=== PATIENT | female | born 1990 | race Caucasian/White ===

== ENCOUNTER 2022-06-30 06:38 | Inpatient (IN) | payer BC ==
[~2022-06-30] VITALS: Ht 157.5 cm; Wt 89.4 kg
[2022-06-30] MEDS ORDERED: MISOPROSTOL 100MCG TABLET VG PRN (07:30)
[2022-06-30] MEDS ORDERED: NALOXONE HCL 0.4 MG/ML 1ML VIAL IM PRN (07:30)
[2022-06-30] MEDS ORDERED: CARBOPROST TROMETHAMINE 250 MCG/ML AMPUL IM PRN (07:30)
[2022-06-30] MEDS ORDERED: METHYLERGONOVINE MALEATE 0.2 MG/ML IM PRN ×2 (07:30→22:30)
[2022-06-30] MEDS ORDERED: LIDOCAINE HCL 1% 20ML VIAL (Pyxis) INJ INFIL PRN (07:30)
[2022-06-30] MEDS ORDERED: BUTORPHANOL TARTRATE 2 MG/ML VIAL IV PRN (07:30)
[2022-06-30] MEDS ORDERED: PENICILLIN G POTASSIUM 5 MMU in DEXT 5% WATER 100 ML IV SCH (08:00)
[2022-06-30 09:36] LABS: BASOPHILS % 0.6 % (0.0-2.0); EOSINOPHILS % 2.6 % (0.0-5.0); LYMPHOCYTES % 19.9 % (20.0-50.0); MEAN CORPUSCULAR HEMOGLOBIN 26.7 pg (28.0-32.0); MEAN CORPUSCULAR VOLUME 82.4 fL (81.0-99.0); MEAN PLATELET VOLUME 9.8 fl (7.4-10.4); MONOCYTES % 4.8 % (2.0-8.0); NEUTROPHILS % 72.1 % (40.0-76.0); PLATELET 223 x1000/uL (130-400); RED BLOOD CELL COUNT 4.12 mill/uL (4.2-5.4); RED CELL DISTRIBUTION WIDTH 14.2 % (11.6-14.6)
[2022-06-30 09:48] LABS: INR 0.9; PARTIAL THROMBOPLASTIN TIME 25.7 sec (23.4-31.0); PROTHROMBIN TIME 9.6 sec (9.6-11.0)
[2022-06-30] MEDS: LACTATED RINGERS 1,000 ML IV SCH ×4 (09:50→20:13)
[2022-06-30] MEDS ORDERED: SODIUM CHLORIDE 0.9% 10ML VIAL ONE (09:58)
[2022-06-30] MEDS ORDERED: EPHEDRINE SULFATE 50MG/ML VIAL ONE (09:58)
[2022-06-30] MEDS ORDERED: PHENYLEPHRINE HCL 10 MG/ML 1ML (IV VIAL) IV ONE (09:58)
[2022-06-30] MEDS ORDERED: LIDOCAINE HCL 2%/EPINEPHRINE 1:100,000 20 ML VIAL INFIL ONE (09:58)
[2022-06-30 11:08] LABS: CLARITY URINE CLEAR (CLEAR); COLOR URINE YELLOW (YELLOW); KETONES URINE NEGATIVE (NEGATIVE); LEUKOCYTE ESTERASE URINE TRACE (NEGATIVE); NITRITE URINE NEGATIVE (NEGATIVE); OCCULT BLOOD URINE NEGATIVE (NEGATIVE); PH URINE 6.5 (4.5-8.0); PROTEIN URINE NEGATIVE (NEGATIVE); SPECIFIC GRAVITY URINE 1.017 (1.005-1.030); UROBILINOGEN URINE 0.2 E.U./dL (0.2-1.0)
[2022-06-30 11:55] LABS: *AMPHETAMINES SCREEN URINE NEGATIVE (NEGATIVE); *BARBITURATES SCREEN URINE NEGATIVE (NEGATIVE); *BENZODIAZEPINES SCREEN URINE NEGATIVE (NEGATIVE); *COCAINE SCREEN URINE NEGATIVE (NEGATIVE); CANNABINOID URINE SCREEN NEGATIVE (NEGATIVE); METHADONE URINE SCREEN NEGATIVE (NEGATIVE); OPIATES URINE SCREEN NEGATIVE (NEGATIVE); PHENCYCLIDINE URINE SCREEN NEGATIVE (NEGATIVE)
[2022-06-30 13:35] LABS: HEPATITIS B SURFACE ANTIGEN NEGATIVE
[2022-06-30] MEDS: PENICILLIN G POTASSIUM 2.5 MMU in DEXTROSE 5% WATER 50 ML IV SCH ×2 (14:15→18:20)
[2022-06-30] MEDS: OXYTOCIN 30 UNITS/500ML NS PMX 500 ML IV SCH ×2 (18:28→22:44)
[2022-06-30] MEDS ORDERED: ROPIVACAINE HCL/PF EPIDURAL 200 ML EPI SCH (18:30)
[2022-06-30] MEDS ORDERED: ACETAMINOPHEN WITH CODEINE 300/30MG TABLET PO PRN (22:30)
[2022-06-30] MEDS ORDERED: BENZOCAINE/LANOLIN/ALOE VERA SPRAY TOP PRN (22:30)
[2022-06-30] MEDS ORDERED: LANOLIN OINT 7GM TUBE TOP PRN (22:30)
[2022-06-30] MEDS ORDERED: IBUPROFEN 400MG TABLET PO PRN (22:30)
[2022-06-30] MEDS ORDERED: DIPHENHYDRAMINE 25MG CAPSULE PO PRN (22:30)
[2022-06-30] MEDS ORDERED: BISACODYL 10MG SUPP PR PRN (22:30)
[2022-06-30] MEDS ORDERED: HEMORRHOIDAL SUPP PR PRN (22:30)
[2022-06-30] MEDS ORDERED: OXYTOCIN 30 UNITS/500ML NS PMX 500 ML IV SCH (22:30)
[2022-06-30] MEDS ORDERED: GLYCERIN/WITCH HAZEL LEAF MEDICATED PAD TOP PRN (22:30)
[2022-06-30 22:39] LABS: BG BASE EXCESS -1.3 mmol/L (-2.0-2.0); BG FRACTION INSPIRED OXYGEN 21; BG HCO3 ACT 24.8 mmol/L (22.0-26.0); BG PCO2 46.6 mmHg (35.0-45.0); BG PH 7.344 (7.350-7.450); BG SAMPLE SITE UAC; BG VENT MODE ROOM AIR
[2022-06-30 22:40] LABS: BG BASE EXCESS -3.2 mmol/L (-2.0-2.0); BG FRACTION INSPIRED OXYGEN 21; BG HCO3 ACT 21.9 mmol/L (22.0-26.0); BG PCO2 39.5 mmHg (35.0-45.0); BG PH 7.361 (7.350-7.450); BG PO2 < 30.3 mmHg (75.0-100.0); BG SAMPLE SITE UVC; BG VENT MODE ROOM AIR
[2022-07-01] MEDS: IBUPROFEN 800MG TABLET PO PRN ×3 (00:11→22:02)
[2022-07-01 01:00] VITALS: BP 105/52
[2022-07-01 02:00] VITALS: BP 103/58
[2022-07-01] MEDS: LACTATED RINGERS 1,000 ML IV SCH (02:32)
[2022-07-01 04:00] VITALS: BP 96/50
[2022-07-01 06:51] LABS: BASOPHILS % 0.2 % (0.0-2.0); EOSINOPHILS % 0.1 % (0.0-5.0); HEMATOCRIT. 27.6 % (36.0-48.0); HEMOGLOBIN. 9.2 g/dL (12.0-16.0); LYMPHOCYTES % 15.8 % (20.0-50.0); MEAN CORPUSCULAR HEMOGLOBIN 27.4 pg (28.0-32.0); MEAN CORPUSCULAR VOLUME 82.1 fL (81.0-99.0); MONOCYTES % 7.2 % (2.0-8.0); NEUTROPHILS % 76.7 % (40.0-76.0); PLATELET 155 x1000/uL (130-400); RED BLOOD CELL COUNT 3.35 mill/uL (4.2-5.4); RED CELL DISTRIBUTION WIDTH 14.6 % (11.6-14.6)
[2022-07-01 08:00] VITALS: BP 98/53
[2022-07-01] MEDS: PRENATAL VIT/FE FUMARATE/FA TABLET PO SCH (08:45)
[2022-07-01] MEDS: FERROUS SULFATE 325MG TABLET PO SCH ×2 (08:45→12:45)
[2022-07-01] MEDS: MAGNESIUM/ALUMINUM HYDROXIDE/SIMETHICONE 30ML UDC PO SCH ×2 (08:45→12:45)
[2022-07-01] MEDS: SIMETHICONE 80MG TABLET CHEW PO SCH ×2 (08:45→12:45)
[2022-07-01 16:00] VITALS: BP 111/53
[2022-07-01 20:00] VITALS: BP 119/79
[2022-07-01] MEDS ORDERED: DOCUSATE SODIUM 100MG CAPSULE PO SCH (21:00)
[2022-07-02 03:00] VITALS: BP 106/62
[2022-07-02] MEDS: IBUPROFEN 800MG TABLET PO PRN (03:46)
[2022-07-02 08:00] VITALS: BP 101/48
[2022-07-02] MEDS: FERROUS SULFATE 325MG TABLET PO SCH (08:28)
[2022-07-02] MEDS: MAGNESIUM/ALUMINUM HYDROXIDE/SIMETHICONE 30ML UDC PO SCH (08:28)
[2022-07-02] MEDS: SIMETHICONE 80MG TABLET CHEW PO SCH (08:28)
[2022-07-02] MEDS: PRENATAL VIT/FE FUMARATE/FA TABLET PO SCH (08:28)
== END 2022-07-02 12:15 | disposition home or self-care (01) | DRG 805 ==
LOC: 8 EST LDRP 06:38 → OBSVTOIN 06:38 → 8EST 07-01 01:01
PROVIDERS: ADMIT Specialist; ATTEND Specialist
PROC: 10D07Z6 Extraction of Products of Conception, Vacuum, Via Natural or Artificial Opening (ICD-10-PCS; principal; 2022-06-30)
PROC: 0HQ9XZZ Repair Perineum Skin, External Approach (ICD-10-PCS; 2022-06-30)
PROC: 3E0R3BZ Introduction of Anesthetic Agent into Spinal Canal, Percutaneous Approach (ICD-10-PCS; 2022-06-30)
PROC: 00HU33Z Insertion of Infusion Device into Spinal Canal, Percutaneous Approach (ICD-10-PCS; 2022-06-30)
DX: O69.81X0 Labor and delivery complicated by cord around neck, without compression, not applicable or unspecified (principal); O60.14X0 Preterm labor third trimester with preterm delivery third trimester, not applicable or unspecified; Z37.0 Single live birth; O98.32 Other infections with a predominantly sexual mode of transmission complicating childbirth; O42.913 Preterm premature rupture of membranes, unspecified as to length of time between rupture and onset of labor, third trimester; O99.214 Obesity complicating childbirth; Z3A.35 35 weeks gestation of pregnancy; O99.02 Anemia complicating childbirth; O70.0 First degree perineal laceration during delivery; A63.0 Anogenital (venereal) warts; Z20.822 Contact with and (suspected) exposure to COVID-19; O76 Abnormality in fetal heart rate and rhythm complicating labor and delivery
CPT/HCPCS: 36415; 36600; 76805; 76818; 80305; 81003; 82805; 85025; 86592; 86703; 86762; 86850; 86900; 87340; 87426; G0378; J0595; J2370; J2540; J3490; J7060; J7120; A4315; J2590

== ENCOUNTER 2023-12-03 08:36 | Emergency (ER) | payer BC ==
[~2023-12-03] VITALS: Ht 157.5 cm; Wt 77.0 kg
[2023-12-03 08:41] VITALS: O2SAT 99
[2023-12-03 09:00] LABS: BASOPHILS % 0.1 % (0.0-2.0); EOSINOPHILS % 2.7 % (0.0-5.0); HEMATOCRIT. 40.2 % (36.0-48.0); HEMOGLOBIN. 12.9 g/dL (12.0-16.0); LYMPHOCYTES % 8.6 % (20.0-50.0); MEAN CORPUSCULAR HEMOGLOBIN 26.5 pg (28.0-32.0); MEAN CORPUSCULAR HGB CONC 32.2 g/dL (31.0-37.0); MEAN CORPUSCULAR VOLUME 82.2 fL (81.0-99.0); MEAN PLATELET VOLUME 7.4 fl (7.4-10.4); MONOCYTES % 5.3 % (2.0-8.0); NEUTROPHILS % 83.3 % (40.0-76.0); PLATELET 359 x1000/uL (130-400); RED BLOOD CELL COUNT 4.88 mill/uL (4.2-5.4); RED CELL DISTRIBUTION WIDTH 13.6 % (11.6-14.6); WHITE BLOOD COUNT 7.7 x1000/uL (4.5-11.0)
[2023-12-03 09:04] LABS: CHLORIDE 108 mEq/L (98-107); POTASSIUM 4.1 mEq/L (3.5-5.1); SODIUM 139 mEq/L (136-145)
[2023-12-03 09:05] LABS: CALCIUM 10.4 mg/dL (8.7-10.4); CARBON DIOXIDE 26 mEq/L (21-32)
[2023-12-03 09:10] LABS: CREATININE 0.7 mg/dL (0.6-1.0); GLUCOSE 107 mg/dL (70-105); UREA NITROGEN BLOOD 6 mg/dL (9-23)
[2023-12-03 09:12] LABS: ALANINE AMINOTRANSFERASE 9 IU/L (10-49); ALBUMIN 5.2 g/dL (3.2-4.8); ASPARTATE AMINOTRANSFERASE 15 IU/L (<34); BILIRUBIN DIRECT 0.2 mg/dL (<=3.0); BILIRUBIN TOTAL 0.5 mg/dL (0.1-1.0); PROTEIN TOTAL 8.1 g/dL (6.0-8.3)
[2023-12-03 09:29] LABS: HCG SCREEN NEGATIVE
[2023-12-03] MEDS: SODIUM CHLORIDE 0.9% 1,000 ML IV ONE (10:14)
[2023-12-03] MEDS: PANTOPRAZOLE SODIUM 40 MG/VIAL IV STA (10:20)
[2023-12-03] MEDS: ONDANSETRON HCL 4MG/2ML INJ IV STA (10:20)
[2023-12-03] MEDS ORDERED: FAMO-135 MT (11:08)
[2023-12-03] MEDS ORDERED: LOPE2CAP MT (11:08)
[2023-12-03 11:25] VITALS: BP 108/68; PULSE 78; RESP 16; TEMP 37.05852; O2SAT 99
== END 2023-12-03 11:25 | disposition home or self-care (01) ==
LOC: ER 08:36
DX: K52.9 Noninfective gastroenteritis and colitis, unspecified (principal)
CPT/HCPCS: 80076; 80048; 84703; 83690; 85025; 36415; 96361; 96374; 96375; 99284; J2405; J2470; J7030; Z7610 ×3

== ENCOUNTER 2024-03-24 20:37 | Emergency (ER) | payer BC ==
[~2024-03-24] VITALS: Ht 157.5 cm; Wt 64.0 kg
[~2024-03-24 20:37] MED LIST: FAMO-135 MT; LOPE2CAP MT
[2024-03-24 20:41] VITALS: O2SAT 99
[2024-03-24 21:06] VITALS: O2SAT 100
[2024-03-24 22:48] LABS: BASOPHILS % 0.6 % (0.0-2.0); EOSINOPHILS % 0.9 % (0.0-5.0); HEMATOCRIT. 37.7 % (36.0-48.0); HEMOGLOBIN. 12.1 g/dL (12.0-16.0); LYMPHOCYTES % 13.3 % (20.0-50.0); MEAN CORPUSCULAR HEMOGLOBIN 26.6 pg (28.0-32.0); MEAN CORPUSCULAR HGB CONC 32.1 g/dL (31.0-37.0); MEAN CORPUSCULAR VOLUME 82.8 fL (81.0-99.0); MEAN PLATELET VOLUME 7.8 fl (7.4-10.4); MONOCYTES % 3.8 % (2.0-8.0); NEUTROPHILS % 81.4 % (40.0-76.0); PLATELET 344 x1000/uL (130-400); RED BLOOD CELL COUNT 4.56 mill/uL (4.2-5.4); RED CELL DISTRIBUTION WIDTH 13.5 % (11.6-14.6); WHITE BLOOD COUNT 7.5 x1000/uL (4.5-11.0)
[2024-03-24 22:52] LABS: CARBON DIOXIDE 27 mEq/L (21-32); CHLORIDE 106 mEq/L (98-107); POTASSIUM 4.7 mEq/L (3.5-5.1); SODIUM 141 mEq/L (136-145)
[2024-03-24 22:53] LABS: CALCIUM 10.5 mg/dL (8.7-10.4)
[2024-03-24 22:58] LABS: CREATININE 0.7 mg/dL (0.6-1.0); GLUCOSE 120 mg/dL (70-105); UREA NITROGEN BLOOD 9 mg/dL (9-23)
[2024-03-24 23:00] LABS: ALANINE AMINOTRANSFERASE 53 IU/L (10-49); ALBUMIN 5.1 g/dL (3.2-4.8); ASPARTATE AMINOTRANSFERASE 108 IU/L (<34); BILIRUBIN DIRECT 0.2 mg/dL (<=3.0); BILIRUBIN TOTAL 0.4 mg/dL (0.1-1.0); PROTEIN TOTAL 8.1 g/dL (6.0-8.3)
[2024-03-24 23:25] LABS: TROPONIN I HIGH SENSITIVITY < 4 ng/L (3.0-34)
[2024-03-24 23:48] VITALS: TEMP 97.8
[2024-03-24] MEDS: ACETAMINOPHEN 325MG TABLET PO STA (23:48)
[2024-03-24] MEDS: MAGNESIUM/ALUMINUM HYDROXIDE/SIMETHICONE 30ML UDC PO STA (23:48)
[2024-03-25] MEDS: FAMOTIDINE 20MG TABLET PO ONE
[2024-03-25 00:18] LABS: HCG SCREEN NEGATIVE
[2024-03-25 00:23] LABS: D-DIMER 0.78 mg/L FEU (<0.50); INR 0.9; PARTIAL THROMBOPLASTIN TIME 26.9 sec (23.4-31.0); PROTHROMBIN TIME 10.6 sec (9.6-11.0)
[2024-03-25 01:05] VITALS: BP 112/75; PULSE 73; RESP 20
[2024-03-25] MEDS: MORPHINE SULFATE 4 MG/ML INJ (FOR IV/IM USE) IV STA (01:05)
[2024-03-25] MEDS: ONDANSETRON HCL 4MG/2ML INJ IV STA (01:05)
[2024-03-25] MEDS: SODIUM CHLORIDE 0.9% 1,000 ML IV ONE (01:15)
[2024-03-25] MEDS: ONDANSETRON 4MG ODT PO ONE (01:53)
[2024-03-25] MEDS ORDERED: ONDA-239 PO (02:33)
[2024-03-25] MEDS ORDERED: IBUP-2028 MT (02:33)
[2024-03-25] MEDS ORDERED: FAMO-135 MT (02:33)
[2024-03-25] MEDS ORDERED: IOHEXOL-350 100 ML BOTTLE ONE (04:48)
== END 2024-03-25 05:05 | disposition home or self-care (01) ==
LOC: ER 20:37
DX: K80.50 Calculus of bile duct without cholangitis or cholecystitis without obstruction (principal); R10.13 Epigastric pain; R07.89 Other chest pain; R11.2 Nausea with vomiting, unspecified
CPT/HCPCS: 99285; 71045; 80076; 80048; 84703; 83690; 85025; 85379; 85610; 85730; 84484; 36415; 93005; 96360; 71275; 76705; Q9967; Q0162; J7030